=== PATIENT | female | born 1985 | race Caucasian/White ===

== ENCOUNTER 2016-12-19 02:43 | Emergency (ER) | payer OTHER ==
[~2016-12-19] VITALS: Ht 175.3 cm; Wt 72.6 kg
--- NOTE | 2016-12-19 03:20 | ER.PDOC ---
General Chief Complaint: Skin Rash/Abscess Stated Complaint: ELBOW PAIN Time seen by MD: 03:12 Source: patient Exam Limitations: no limitations History of Present Illness Initial Comments pt has notice an area on her left elbow that is erythematous and tender to touch Where: home Severity: moderate Exacerbated By: movement of Relieved By: nothing Quality: pain, swelling, tenderness Prior symptoms/Treatment: Similar symptoms previous Allergies: Coded Allergies: cephalexin (Verified Allergy, Unknown, 09/06/15) ketorolac (Verified Allergy, Unknown, 09/06/15) Past Medical History Surgical History: , tubal LMP (females 10-50): tubal Family History Significant Family History: no pertinent family hx Social History Smoking: less than 1 pack/day Drug Use: Meth Reviewed Nursing Reviewed: Vital Signs, Abn. Noted, Nursing Assessment Review of Systems Constitutional: no symptoms reported EENTM: no symptoms reported Respiratory: no symptoms reported Cardiovascular: no symptoms reported Gastrointestinal: no symptoms reported Musculoskeletal: see HPI, joint pain Skin: see HPI, change in color, lesions Psychiatric/Neurological: no symptoms reported All Other Systems: Reviewed and Negative Physical Exam General Appearance: mild distress Upper Extremity: tenderness, swelling Skin: warmth, erythema (left elbow) Vascular: no vascular compromise Neuro/Psych: sensation nml, motor nml Central Exam: oriented X3, CN's nml as tested, nml speech, nml cognition, nml mood/affect EENT: eyes nml inspection, ENT nml inspection, pharynx nml Neck/Back: nml inspection Respiratory: no resp distress, breath sounds nml CVS: reg rate & rhythm, heart sounds nml Abdomen: non-tender, no organomegaly, nml bowels sounds Progress Progress tried to aspirate the erythematous area to see if there was underlying abscess, no results; suspect early cellulitis; will start with clindamycin and watch expectantly. Departure Time of Disposition: 03:31 Disposition: 01 HOME, SELF-CARE Impression: Primary Impression: Cellulitis of left elbow Condition: Stable Referrals: PCP,UNKNOWN (PCP) PRIMARY CARE PROVIDER GENEVA LOPEZ MD Dec 19, 2016 03:20
[2016-12-19] MEDS ORDERED: CLEOCIN ONE (03:22)
[2016-12-19] MEDS ORDERED: CLEOCIN IM ONE (03:30)
[2016-12-19 03:41] VITALS: BP 126/68
== END 2016-12-19 03:43 | disposition home or self-care (01) ==
LOC: ER 02:43
DX: L03.114 Cellulitis of left upper limb (principal); F17.200 Nicotine dependence, unspecified, uncomplicated; F15.10 Other stimulant abuse, uncomplicated; Z88.1 Allergy status to other antibiotic agents; Z88.8 Allergy status to other drugs, medicaments and biological substances; X58.XXXA Exposure to other specified factors, initial encounter; Y93.89 Activity, other specified; Y92.009 Unspecified place in unspecified non-institutional (private) residence as the place of occurrence of the external cause; Y99.8 Other external cause status
CPT/HCPCS: 96372; 99283; J3490